=== PATIENT | female | born 1935 | race Caucasian/White ===

== ENCOUNTER 2017-01-23 09:50 | Emergency (ER) | payer MEDICAID, MEDICARE ==
[~2017-01-23] VITALS: Ht 157.5 cm; Wt 73.0 kg
[~2017-01-23 09:50] MED LIST: ASPI-535 PO; ATOR10TA65 PO; DONE5TAB46 PO; LINA145C PO; LISI10TA2 PO; LORA10TA3 PO; MELO-109 PO; PRD1OP5 BOTH EYES; RANI150T5 PO; TRAM50TA2 PO
[2017-01-23 09:53] VITALS: Ht 157.5 cm; Wt 73.0 kg
[2017-01-23 10:50] LABS: URINE BLOOD (Dip) POC Trace-intact (NEGATIVE)
[2017-01-23] MEDS ORDERED: ACETAMINOPHEN 500 MG TAB PO STA (11:05)
[2017-01-23] MEDS ORDERED: CEPH-443 PO (11:09)
[2017-01-23] MEDS ORDERED: PHEN-538 PO (11:09)
--- NOTE | 2017-01-23 11:12 | ERD ---
ER Documentation Chief Complaint Date/Time DATE: 01/23/17 TIME: 11:11 Chief Complaint Complains of urine problems x 3 days HPI This 81-year-old female presents with dysuria for the last 3 days. There is no history of fevers, vomiting, abdominal pain. She has any bleeding or discharge. ROS All systems reviewed and are negative except as per history of present illness. Medications Home Meds Active Scripts Phenazopyridine Hcl* (Pyridium*) 200 Mg Tab, 200 MG PO TID Y for URINARY PAIN, # 6 TAB Prov:CB CAMARENA MD 01/23/17 Cephalexin* (Keflex*) 500 Mg Capsule, 500 MG PO QID for 5 Days, CAP Prov:CB CAMARENA MD 01/23/17 Reported Medications Linaclotide (LINZESS) 145 Mcg Capsule, 145 MCG PO DAILY, #30 CAP 12/27/15 Prednisolone Acetate* (Pred Forte*) 5 Ml Susp, 1 DROP BOTH EYES QID, EA 12/27/15 Ranitidine Hcl* (Ranitidine Hcl*) 150 Mg Tablet, 150 MG PO HS, #30 TAB 12/27/15 Tramadol HCl (Tramadol HCl) 50 Mg Tablet, 50 MG PO BID Y for PAIN, #60 08/19/15 Atorvastatin (Atorvastatin) 10 Mg Tablet, 10 MG PO QHS, #30 08/19/15 Donepezil* (Aricept*) 5 Mg Tablet, 5 MG PO DAILY, #60 08/19/15 Loratadine* (Loratadine*) 10 Mg Tablet, 10 MG PO DAILY, TAB 05/21/15 Meloxicam* (Meloxicam*) 7.5 Mg Tablet, 7.5 MG PO DAILY, TAB 05/21/15 Lisinopril* (Lisinopril*) 10 Mg Tablet, 10 MG PO DAILY 11/04/13 Aspirin Ec (Aspir 81) 81 Mg Tablet.dr, 81 MG PO DAILY 08/25/12 Allergies Allergies: Coded Allergies: No Known Allergy (Verified , 12/02/15) PMhx/Soc History of Surgery: Yes (RT EYE CATARACT SURGERY) Anesthesia Reaction: No Hx Neurological Disorder: No Hx Respiratory Disorders: No Hx Cardiac Disorders: Yes (HTN) Hx Psychiatric Problems: Yes (ANXIETY) Hx Miscellaneous Medical Probl: No Hx Alcohol Use: Yes Hx Substance Use: No Hx Tobacco Use: No Physical Exam Vitals Vital Signs Date Time Temp Pulse Resp B/P Pulse Ox O2 Delivery O2 Flow Rate FiO2 01/23/17 09:53 98.5 84 20 148/67 95 Physical Exam Const: [] Alert, not ill-appearing, pleasant Head: Atraumatic Eyes: Normal Conjunctiva ENT: Normal External Ears, Nose and Mouth. Neck: Full range of motion..~ No meningismus. Resp: Clear to auscultation bilaterally Cardio: Regular rate and rhythm, no murmurs Abd: Soft, non tender, non distended. Normal bowel sounds Skin: No petechiae or rashes Back: No midline or flank tenderness Ext: No cyanosis, or edema Neur: Awake and alert Psych: Normal Mood and Affect Results 24 hrs Laboratory Tests Test 01/23/17 10:53 Bedside Urine pH (LAB) 7.5 Bedside Urine Protein (LAB) Negative Bedside Urine Glucose (UA) Negative Bedside Urine Ketones (LAB) Negative Bedside Urine Blood Trace-intact Bedside Urine Nitrite (LAB) Negative Bedside Urine Leukocyte Esterase (L 2+ Current Medications Medications (Trade) Dose Ordered Sig/Gerald Route PRN Reason Start Time Stop Time Status Last Admin Dose Admin Acetaminophen (Tylenol Tab) 500 mg ONCE STAT PO 01/23/17 11:05 01/23/17 11:07 DC Cephalexin (Keflex) 500 mg ONCE ONCE PO 01/23/17 11:30 01/23/17 11:31 Phenazopyridine HCl (Pyridium) 200 mg ONCE ONCE PO 01/23/17 11:30 01/23/17 11:31 Procedures/MDM And shows positive leukocytes and hemoglobin. Patient was given Keflex 500 mg, Tylenol and Pyridium by mouth here in the ED. Patient has signs and symptoms of acute cystitis without signs or symptoms or history to suggest pyonephritis, acute abdomen, sepsis. She will treated with Keflex and Pyridium at home and further observation. Patient is advised to return for abdominal pain, fevers, vomiting, new worsening symptoms or primary care doctor this week. The patient was stable with no new complaints during the ER course. Clinically, there is no current evidence to suggest meningitis, sepsis, acute abdomen, pneumonia, acute coronary syndrome, pulmonary embolism, or any other emergent condition appearing to require further evaluation or hospitalization. The patient should certainly return for any new or worsening symptoms per the aftercare instructions. They should otherwise follow-up with her primary care doctor for reevaluation this week. Departure Diagnosis: Primary Impression: UTI (urinary tract infection) Urinary tract infection type: acute cystitis Hematuria presence: without hematuria Qualified Code: N30.00 - Acute cystitis without hematuria Condition: Stable Patient Instructions: Understanding Urinary Tract Infections (UTIs) Additional Instructions: Examines normal hoy. Cheque otro vez con lujan doctor primario en el proximo yeh or regresa para mas o nueva simptomas-FIEBRE, VOMITO, DOLOR EN ESTOMAGO. CB CAMARENA MD January 23, 2017 11:12
[2017-01-23] MEDS ORDERED: CEPHALEXIN 500 MG CAP PO ONE (11:30)
[2017-01-23] MEDS ORDERED: PHENAZOPYRIDINE 100 MG TAB PO ONE (11:30)
== END 2017-01-23 11:29 | disposition home or self-care (01) ==
LOC: FTE 09:50
DX: N30.00 Acute cystitis without hematuria (principal); I10 Essential (primary) hypertension; Z79.82 Long term (current) use of aspirin
CPT/HCPCS: 81003; 99283